=== PATIENT | male | born 1970 | race Two or more races ===

== ENCOUNTER 2019-06-02 15:23 | Emergency (ER) | payer SELFPAY ==
[2019-06-02] MEDS ORDERED: METHOCARBAMOL 500 MG TABLET PO ONE (17:31)
[2019-06-02] MEDS ORDERED: DEXAMETHASONE SOD PHOS INJ 10 MG/1 ML VIAL IM ONE (17:31)
[2019-06-02] MEDS ORDERED: NAPROXEN 250 MG TABLET PO ONE (17:31)
--- NOTE | 2019-06-02 17:38 | ER Document Report ---
HPI - HPI Time Seen by Provider: 06/02/19 17:06 Pain Level: 2 Context: Physical examination and history was obtained using the [employer] interpreting system, spanish interpreter/translator name is Tanesha # [id number] - Micronesian. Patient is a 49-year-old male presents to the emergency department with a chief complaint of left lower back pain. Patient states that this is been present for 3 days. Patient reports he has had similar pain in the past and occurs 1-2 times per year. Patient denies injury or fall. Patient denies numbness or tingling to the lower extremities. Patient denies loss of bowel or bladder. Patient denies abdominal pain, nausea, vomiting or diarrhea. Patient denies urinary symptoms or fever. Patient states he has been seen for the same in the past without a diagnosis. Patient states he does have a history of kidney stones but that this feels different. Patient states he does not smoke drink or do any drugs. Patient states he has taken 800 mg of ibuprofen at home without relief. Patient states it feels like a cramping type pain. Patient states it is worse with change in position and movement. Past Medical History - General Information source: Patient - Social History Smoking Status: Never Smoker Chew tobacco use (# tins/day): No Frequency of alcohol use: None Drug Abuse: None Lives with: Spouse/Significant other Family History: None Patient has suicidal ideation: No Patient has homicidal ideation: No - Past Medical History Cardiac Medical History: Reports: None Pulmonary Medical History: Reports: None EENT Medical History: Reports: None Neurological Medical History: Reports: None Endocrine Medical History: Reports: None Renal/ Medical History: Reports: None Malignancy Medical History: Reports None GI Medical History: Reports: None Musculoskeletal Medical History: Reports None Skin Medical History: Reports None Psychiatric Medical History: Reports: None Traumatic Medical History: Reports: None Infectious Medical History: Reports: None Past Surgical History: Reports: None Vertical Provider Document - CONSTITUTIONAL Agree With Documented VS: Yes Exam Limitations: No Limitations General Appearance: No Apparent Distress - HEENT HEENT: Atraumatic, Normocephalic, PERRLA - NECK Neck: Normal Inspection - RESPIRATORY Respiratory: Breath Sounds Normal, No Respiratory Distress - CARDIOVASCULAR Cardiovascular: Regular Rate, Regular Rhythm - GI/ABDOMEN Gastrointestinal: Abdomen Soft, Abdomen Non-Tender, Normal Bowel Sounds - BACK Notes: No CVA tenderness. No cervical, thoracic or lumbar midline tenderness with palpation. Patient does have tenderness to the left latissimus dorsi muscle without obvious edema, ecchymosis, erythema. - NEURO Level of Consciousness: Awake, Alert, Appropriate - DERM Integumentary: Warm, Dry, No Rash Adult Front & Back Diagram: 1 - Reproducible pain with palpation. Course - Re-evaluation Re-evalutation: 06/02/19 17:49 Patient nontoxic-appearing in triage. Patient states he is able to bear weight but complains of left lower back pain. His symptoms are consistent with a musculoskeletal injury. I did go over strict return precautions with the patient and family member using the [employer] interpreting system. Patient verbalized understanding. I did inform the patient the treatment for this is normally NSAIDs. I did inform the patient to take [id number] naproxen, using cool and warm packs, he will be given a shot of Decadron which is a steroid as well as the prescription for Robaxin which is a muscle relaxer. Patient and family member verbalized understanding and denies questions at this time. 06/02/19 18:09 I did provide the patient with [place] approved care notes regarding low back pain and strict return precautions that were given in Micronesian. - Vital Signs Vital signs: Temp Pulse Resp BP Pulse Ox 97.4 F 75 15 156/97 H 99 06/02/19 15:42 06/02/19 15:42 06/02/19 15:42 06/02/19 15:42 06/02/19 15:42 Discharge - Discharge Clinical Impression: Musculoskeletal back pain Condition: Stable Disposition: HOME, SELF-CARE Additional Instructions: Today you are seen in the emergency department for left lower back pain. Your physical examination was reassuring for a musculoskeletal type pain. Please use [id number] naproxen which is an anti-inflammatory. I am also prescribing you Robaxin which is a muscle relaxer. Please take this as prescribed. You are also receiving a shot of Decadron while in the emergency department. This is a steroid standard system for a few days. Please return to the emergency dep artment if your symptoms change or worsen and you develop radiation of pain down your leg, numbness, tingling or weakness in the leg. Please use cool compresses over the site. Hoy lo atienden en el departamento de emergencias por dolor lumbar elke. Arana examen fsico fue tranquilizador para un dolor de tipo musculoesqueltico. Utilice naproxeno de venta robert, que es un antiinflamatorio. Tambin te prescribo Robaxin, que es un relajante muscular. Por favor tome esto kala se lo recetaron. Tambin est recibiendo crys inyeccin de Decadron mientras est en el departamento de emergencias. Yolanda es un sistema estndar de esteroides rahul unos bennett. Regrese al departamento de emergencias si low sntomas cambian o empeoran y desarrolla radiacin de dolor en la pierna, entumecimiento, hormigueo o debilidad en la pierna. Utilice compresas fras sobre el sitio. Low Back Pain Three out of every four people will have an episode of disabling back pain during their lifetime. Most commonly the pain is due to straining of the muscles and ligaments in the low back. Usual treatment includes: (1) Rest on a firm surface. Avoid lying on your stomach. (2) Ice pack the painful area. After a few days, gentle heat may be used intermittently to relax the area, or ice packs can be continued. (3) Medication may be needed -- muscle relaxers and antiinflammatory medicines are commonly used. (4) As the back improves, exercises are prescribed to strengthen the back and abdominal muscles. Your doctor will advise you on the proper care for your back at each stage in your recovery. You may be better in a few days -- or healing may take several weeks. If new symptoms of a "herniated disc" (radiation of pain, numbness, or tingling down the back of the leg or weakness in the leg) occur, you should be re-examined. Further testing may be necessary. Dolor lumbar Patrick de cada cuatro personas tendrn un episodio de dolor de espalda incapacitante rahul arana alka. Con mayor frecuencia, el dolor se debe al esfuerzo de los msculos y ligamentos en la parte baja de la espalda. El tratamiento habitual incluye: (1) Descanse sobre crys superficie firme. Jonna acostarte boca abajo. (2) Hielo en la ap dolorida. Despus de unos bennett, se puede usar un calor suave de manera intermitente para relajar el aleksandr, o se pueden continuar las bolsas de hielo. (3) Es posible que se necesiten medicamentos: comnmente se usan relajantes mu sculares y medicamentos antiinflamatorios. (4) A medida que la espalda mejora, se prescriben ejercicios para fortalecer los msculos de la espalda y abdominales. Arana mdico le aconsejar sobre el cuidado adecuado de arana espalda en cada etapa de arana recuperacin. Puede mejorar en unos bennett, o la curacin puede llevar varias semanas. Si aparecen nuevos sntomas de un "disco herniado" (radiacin de dolor, entumecimiento u hormigueo en la parte posterior de la pierna o debilidad en la pierna), debe volver a examinarse. Pruebas adicionales pueden ser necesarias. Prescriptions: Methocarbamol [Robaxin 750 mg Tablet] 750 mg PO TID #12 tablet Forms: Return to Work
[2019-06-02 18:10] VITALS: BP 145/100
== END 2019-06-02 18:07 | disposition home or self-care (01) ==
LOC: ER 15:23
DX: M54.5 Low back pain (principal); Z87.442 Personal history of urinary calculi
CPT/HCPCS: 99283; 96372; J1100